=== PATIENT | male | born 2000 | race Caucasian/White ===

== ENCOUNTER 2018-12-05 15:08 | Emergency (ER) | payer MEDICAID ==
[~2018-12-05] VITALS: Ht 170.2 cm; Wt 109.6 kg
[2018-12-05 15:13] VITALS: Ht 170.2 cm; Wt 109.6 kg
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
[2018-12-05] MEDS ORDERED: IBUPROFEN 600 MG TAB PO ONE (18:00)
[2018-12-05] MEDS ORDERED: IBUP-1542 PO (19:17)
[2018-12-05 19:33] VITALS: BP 132/68; PULSE 81; RESP 20
== END 2018-12-05 19:34 | disposition home or self-care (01) ==
LOC: FTE 15:08
DX: S20.219A Contusion of unspecified front wall of thorax, initial encounter (principal); V49.59XA Passenger injured in collision with other motor vehicles in traffic accident, initial encounter
CPT/HCPCS: 71045; Z7502; Z7610